=== PATIENT | male | born 1950 | race Caucasian/White ===

== ENCOUNTER 2019-04-27 12:10 | Emergency (ER) | payer MEDICARE, OTHER ==
[2019-04-27] MEDS ORDERED: Lidocaine 1% 30 ML SDV INJECT ONE (13:13)
--- NOTE | 2019-04-27 14:37 | EDM.PDOC ---
ED HPI GENERAL MEDICAL PROBLEM - General Chief Complaint: General Stated Complaint: FISH HOOK RIGHT HAND Time Seen by Provider: 04/27/19 12:20 Source of Information: Reports: Patient, Family, RN History Limitations: Reports: No Limitations - History of Present Illness INITIAL COMMENTS - FREE TEXT/NARRATIVE: 68 yr male presents with fish hook to right hand between thumb and 2nd finger. States he was fishing on [place] [address] and this happened about 2 hour ago. He was with his and t 2 of the barbs are stuck in the hand and the other barbs on other end of the hook and being held in the hand. States no allergies and has recently had a tetanus vaccine. - Related Data Allergies Allergy/AdvReac Type Severity Reaction Status Date / Time No Known Allergies Allergy Verified 04/27/19 12:15 Home Meds: Home Meds Aspirin [Halfprin] 81 mg PO DAILY 04/27/19 [History] Lisinopril 5 mg PO BID 04/27/19 [History] Metoprolol Tartrate 12.5 mg PO BID 04/27/19 [History] atorvaSTATin [Lipitor] 40 mg PO BEDTIME 04/27/19 [History] ED ROS GENERAL - Review of Systems Review Of Systems: See Below Constitutional: Reports: No Symptoms Respiratory: Reports: No Symptoms Cardiovascular: Reports: No Symptoms Skin: Reports: Other (fish hook to left hand, started about 2 hour ago.) Neurological: Reports: No Symptoms Psychiatric: Reports: No Symptoms ED EXAM, GENERAL - Physical Exam Exam: See Below Exam Limited By: No Limitations General Appearance: Alert, No Apparent Distress Ears: Hearing Grossly Normal Head: Atraumatic, Normocephalic Respiratory/Chest: No Respiratory Distress Extremities: Normal Range of Motion Neurological: Alert, Oriented, Normal Cognition Psychiatric: Normal Affect, Normal Mood Skin Exam: Warm, Dry, Normal Color, Other (2 barbs of fish hook embedded between thumb and 2nd finger of the left hand.) Course - Vital Signs Last Recorded V/S: Last Vital Signs Temp 97.3 F 04/27/19 13:16 Pulse 62 04/27/19 13:16 Resp 18 04/27/19 13:16 BP 120/94 H 04/27/19 13:16 Pulse Ox 100 04/27/19 13:16 - Orders/Labs/Meds Meds: Medications Discontinued Medications Generic Name Dose Route Start Last Admin Trade Name Freq PRN Reason Stop Dose Admin Lidocaine HCl 5 ml 04/27/19 13:13 04/27/19 13:14 Xylocaine-Mpf 1% INJECT 04/27/19 13:14 5 ml ONETIME ONE Administration - Re-Assessments/Exams Free Text/Narrative Re-Assessment/Exam: 04/27/19 14:34 Area is cleansed with Betadine. 1% lidocaine used for pain control to area of fish hook. Fish hook ring to audrey wrap was cut with wire cutters. With 18 G needle, barbs were loosened and staff assist with removing fish hook with gentle pulling with forceps. Pt states no pain with procedure. Audrey Wrap preserved and hook preserved and returned to pt. Aftercare same as with puncture wound. Keep area clean and dry, apply antibiotic oint to area prn and monitor for any signs of infection. RTC or ER if any concerns of temperature or infection develop. Departure - Departure Time of Disposition: 12:45 Disposition: Home, Self-Care 01 Condition: Good Clinical Impression: Fish hook injury of hand - Discharge Information *PRESCRIPTION DRUG MONITORING PROGRAM REVIEWED*: Not Applicable *COPY OF PRESCRIPTION DRUG MONITORING REPORT IN PATIENT [place]: Not Applicable Instructions: Puncture Wound Referrals: PCP,None [Primary Care Provider] - Forms: ED Department Discharge Additional Instructions: Leave the dressing on for 2 days. Keep it clean and dry for the next two days as well. Use antibiotic ointment on the area as well tonight and again tomorrow then place a bandaid on the area.
== END 2019-04-27 12:45 | disposition home or self-care (01) ==
LOC: LB.ED 12:10
DX: S60.552A Superficial foreign body of left hand, initial encounter (principal); W45.8XXA Other foreign body or object entering through skin, initial encounter; Z79.82 Long term (current) use of aspirin; Z79.899 Other long term (current) drug therapy
CPT/HCPCS: 99282; J2001